=== PATIENT | male | born 1935 | race Caucasian/White ===

== ENCOUNTER 2017-01-19 07:07 | Emergency (ER) | payer MEDICARE ==
[~2017-01-19] VITALS: Ht 172.7 cm; Wt 100.0 kg
[2017-01-19] MEDS ORDERED: SODIUM CHLORIDE FLUSH 10ML SYR IVF ONE (07:30)
[2017-01-19] MEDS ORDERED: ASPIRIN 81 MG TABLET CHEW PO ONE (07:30)
[2017-01-19] MEDS ORDERED: SODIUM CHLORIDE 0.9% 1,000ML IVBOLUS ONE (07:30)
[2017-01-19 07:50] LABS: HEMATOCRIT 47.8 % (39.2-51.8); HEMOGLOBIN 15.9 g/dL (13.7-18.0); WHITE BLOOD COUNT 5.5 x10^3/uL (3.4-10)
[2017-01-19 07:58] LABS: ASPARTATE AMINO TRANSFERASE 27 U/L (15-37); BLOOD UREA NITROGEN 25 mg/dL (7-18)
[2017-01-19 08:05] LABS: IS PT STATUS REG ER OR PRE ER? YES
[2017-01-19 10:05] VITALS: BP 103/54
== END 2017-01-19 11:03 | disposition home or self-care (01) ==
LOC: ED 09:21
DX: R55 Syncope and collapse (principal); Z95.1 Presence of aortocoronary bypass graft; Z95.2 Presence of prosthetic heart valve
CPT/HCPCS: 36415; 71020; 80053; 81001; 84484; 85025; 87086; 93005; 96360; 99285; J7030; 82962